=== PATIENT | male | born 1945 | race Caucasian/White ===

== ENCOUNTER 2020-07-23 06:25 | Day surgery (SDC) | payer BC ==
[~2020-07-23] VITALS: Ht 182.9 cm; Wt 92.1 kg
[~2020-07-23 06:25] MED LIST: ADULT LOW DOSE81 MG PO; COZAAR100 MG PO; GLUCOSAMINE &1 EAC1 PO; HYDROCHLOROTH12.5 MG PO; LOVASTATIN20 MG PO; ONCE DAILY1 EACH PO; SYNTHROID50 MCG PO
--- NOTE | 2020-07-23 08:36 | NUR ---
07/23/20 0836 Yane Mena 0827- PT ARRIVES TO PACU AWAKE AND ORIENTED. PT REPORTS NO PAIN OR NAUSEA. STATES, "I AM JUST SLEEPY". RESP EVEN AND UNLABORED. OXYGEN SAT HIGH 90'S TO 100% ON 3L VIA NC. 0832- OXYGEN TITRATED OFF. 0835- DR. CERVANTES AT THE BEDSIDE TO TALK WITH THE PT.
--- NOTE | 2020-07-23 10:40 | OR ---
[facility] [address], [place] [address] Signed DATE OF OPERATION: 07/23/2020 SURGEON: Mina Cervantes MD PREOPERATIVE DIAGNOSIS: Positive Cologuard test. POSTOPERATIVE DIAGNOSES: 1. Minimal to moderate sigmoid diverticulosis. 2. 4 mm cecal polyp. 3. 4 mm polyp distal right colon. 4. 6 mm polyp at 35 cm. 5. 4 mm polyp at 20 cm/rectosigmoid junction. PROCEDURE: Colonoscopy with hot biopsy. ESTIMATED BLOOD LOSS: None. INDICATIONS: Layton is a 75-year-old gentleman, asked to see me for a colonoscopy. He had a negative barium enema in 2001. He had a negative colonoscopy in 2008 and then recently, he choses Cologuard test over a followup 10-year colonoscopy. It came back positive. He was therefore asked to see me with respect to the above. There is no family history of colon cancer or polyps. In the office, I gave Latyon a booklet on colonoscopy and we looked at that together along with the risks including, but not limited to gas bloating, crampy abdominal pain, bleeding, perforation requiring surgery, and missed diagnosis. We also discussed the need for IV conscious sedation. He had expressed understanding wished to proceed. DESCRIPTION OF PROCEDURE: Layton was taken into our endoscopy suite and placed in the left lateral decubitus position. He was given IV sedation with 8 mg of Versed and 125 mcg of fentanyl. A digital rectal exam was performed and he does have a moderately enlarged and indurated prostate gland. Generally symmetrical on both sides. The adult colonoscope was then introduced, advanced all around into the cecum under direct visualization of camera. It did take some extra sedation abdominal compression or get the scope directly into the cecum itself. Overall, his prep was slightly below average. It took some irrigation to suction out the liquid particulate stool matter. We could see the appendiceal orifice Electronically Signed By: MINA CERVANTES MD 07/23/20 1040 PATIENT NAME: LAYTON SHEPHERD OPERATIVE REPORT DATE OF : 45 REPORT #: [id number] PHYSICIAN: MINA CERVANTES MD PCP: JOÃO YOST MD REPORT IS CONFIDENTIAL AND NOT TO BE RELEASED WITHOUT AUTHORIZATION [facility] [address], [place] [address] Signed and ileocecal valve and at the base of the cecum, there was a small polyp which we removed with a hot biopsy forceps. The scope was then slowly withdrawn. The other polyps were also removed with the help of hot biopsy forceps. He also has diverticula in the sigmoid colon, they were minimal to moderate in size, minimal to moderate in number, and scattered about. The rectum itself was unremarkable. Upon retroflexion of scope, there was no additional pathology noted above the anal canal. After this, the gas was suctioned out and the colonoscope removed. Layton tolerated his procedure quite well. RECOMMENDATIONS: I will see Layton back in my office in 7 to 14 days to review his results. Mina Cervantes MD ALB/MODL /[id number] cc: MD Mina Irwin MD Copies: JOÃO YOST MD, ANDREW L MD ~ Electronically Signed By: MINA CERVANTES MD 07/23/20 1040 PATIENT NAME: LAYTON SHEPHERD OPERATIVE REPORT DATE OF : 45 REPORT #: [id number] PHYSICIAN: MINA CERVANTES MD PCP: JOÃO YOST MD REPORT IS CONFIDENTIAL AND NOT TO BE RELEASED WITHOUT AUTHORIZATION
--- NOTE | 2020-07-24 16:25 | PATH ---
[facility] [address], [place] [address] Signed SPECIMEN(S): A CECAL POLYP SPECIMEN(S): B DISTAL ASCENDING POLYP SPECIMEN(S): C CECAL POLYP AT 35 CM SPECIMEN(S): D CECUM AT 20 CM SPECIMEN SOURCE: A. CECAL POLYP B. DISTAL ASCENDING POLYP C. CECAL POLYP AT 35 CM D. CECUM AT 20 CM CLINICAL HISTORY: Colonoscopy. Pre: History of positive Cologuard test. Post: Colon polyps, diverticulosis. MICROSCOPIC DESCRIPTION: Histologic sections of all submitted blocks are examined by light microscopy. These findings, together with the gross examination, support the pathologic diagnosis. FINAL PATHOLOGIC DIAGNOSIS: A. Colon, cecum, polyp, polypectomy: - Tubular adenoma. - Negative for high-grade dysplasia or malignancy. B. Colon, distal ascending, polyp, polypectomy: - Hyperplastic polyp. - Negative for dysplasia or malignancy. C. Colon, cecum, polyp at 35 cm, polypectomy: - Fragments of cauterized colonic mucosa with no histopathologic abnormality. - Negative for dysplasia or malignancy. D. Colon, cecum at 20 cm, biopsy: - Fragments of cauterized tubular adenoma. - Negative for high-grade dysplasia or malignancy. NAL:cml:C2NR GROSS DESCRIPTION: Four specimens are received in four containers, labeled "RA." A. The specimen, labeled "RA, cecal polyp," is received in formalin and consists of one venegas soft tissue fragment that measures 0.2 cm in greatest dimension. The specimen is entirely submitted in cassette (A1). B. The specimen, labeled "RA, distal ascending colon polyp," is received in PATIENT NAME: LAYTON SHEPHERD PATHOLOGY DATE OF : 45 REPORT #: [id number] PHYSICIAN: DEANA PATHOLOGY PCP: JOÃO YOST MD REPORT IS CONFIDENTIAL AND NOT TO BE RELEASED WITHOUT AUTHORIZATION [facility] [address] [place] [place] [address] Signed formalin and consists of two venegas soft tissue fragments that measure 0.1 cm in greatest dimension. The specimen is entirely submitted in cassette (B1). C. The specimen, labeled "RA, cecum colon polyp at 35 cm," is received in formalin and consists of one venegas soft tissue fragment that measures 0.2 cm in greatest dimension. The specimen is entirely submitted in cassette (C1). D. The specimen, labeled "RA, cecum colon biopsy at 20 cm," is received in formalin and consists of two venegas soft tissue fragments that measure 0.2 cm in greatest dimension. The specimen is entirely submitted in cassette (D1). JS (under the direct supervision of a pathologist) The Gross Description was prepared using a voice recognition system. The report was reviewed for accuracy; however, sound-alike word errors, addition and/or deletions may occur. If there is any question about this report, please contact Client Services. PERFORMING LABORATORY: The technical component was performed by [facility], [address] [place] [id number] (Drainman: Mercedes Weber MD; CLIA# [id number]). [facility] [address] [address] (CLIA# [id number]). Diagnostician: Teri Julian MD Pathologist Electronically Signed 07/24/2020 Copies: ~ PATIENT NAME: LAYTON SHEPHERD PATHOLOGY DATE OF : 45 REPORT #: [id number] PHYSICIAN: DEANA MARTINEZ PCP: JOÃO YOST MD REPORT IS CONFIDENTIAL AND NOT TO BE RELEASED WITHOUT AUTHORIZATION
== END 2020-07-23 09:05 | disposition home or self-care (01) ==
LOC: OPS 06:25 → DS 06:25 → OPS 06:45
PROVIDERS: ATTEND Colon & Rectal Surgery
PROC: 0DBH8ZZ Excision of Cecum, Via Natural or Artificial Opening Endoscopic (ICD-10-PCS; 2020-07-23)
PROC: 0DBK8ZZ Excision of Ascending Colon, Via Natural or Artificial Opening Endoscopic (ICD-10-PCS; principal; 2020-07-23 06:45)
DX: D12.0 Benign neoplasm of cecum (principal); K57.30 Diverticulosis of large intestine without perforation or abscess without bleeding; N40.0 Benign prostatic hyperplasia without lower urinary tract symptoms; E78.5 Hyperlipidemia, unspecified; Z79.899 Other long term (current) drug therapy
CPT/HCPCS: 99153; G0500; J0690; J2250; J3010